=== PATIENT | female | born 1955 | race Caucasian/White ===

== ENCOUNTER 2017-10-30 16:22 | Emergency (ER) | payer MEDICAID ==
[2017-10-30 16:22] VITALS: BMI 29.2
[2017-10-30 16:52] VITALS: RESP 18; O2SAT 100
[2017-10-30 17:56] LABS: URINE BILIRUBIN NEGATIVE (NEGATIVE); URINE BLOOD NEGATIVE (NEGATIVE); URINE CLARITY SLIGHTY-CLOUDY (Clear); URINE COLOR YELLOW (YELLOW); URINE GLUCOSE (UA) NEG (Normal); URINE LEUKOCYTE ESTERASE NEG Leu/uL (Negative); URINE PROTEIN NEGATIVE (NEGATIVE); URINE UROBILINOGEN 0.2-1.0 mg/dL (0.2-1.0)
[2017-10-30 17:57] LABS: URINE BACTERIA OCC (<OCC)
[2017-10-30 18:03] LABS: VENOUS BLOOD GAS BASE EXCESS 2.4 mmol/L (0.0-2.0); VENOUS BLOOD GAS PCO2 58 mmHg (40-60); VENOUS BLOOD GAS PO2 35 mm/Hg (30-55); VENOUS BLOOD PH 7.32 (7.32-7.43)
[2017-10-30 18:06] LABS: BASO # 0.1 K/uL (0.0-0.2); EOS # 0.3 K/uL (0.0-0.7); LYMPH # 2.6 K/uL (1.0-4.3); LYMPH % 30.6 % (20.0-40.0); MEAN CELL VOLUME 85.9 fl (81.0-99.0); MEAN CORPUSCULAR HEMOGLOBIN 27.8 pg (27.0-31.0); MEAN CORPUSCULAR HGB CONC 32.4 g/dL (33.0-37.0); MEAN PLATELET VOLUME 9.6 fl (7.2-11.7); MONO # 0.5 K/uL (0.0-0.8); MONO % 5.8 % (0.0-10.0); NEUT % 59.6 % (50.0-75.0); NRBC % 0.1 % (0.0-0.0); RBC 4.33 Mil/uL (3.80-5.20); RED CELL DISTRIBUTION WIDTH 14.3 % (11.5-14.5); WHITE BLOOD COUNT 8.4 K/uL (4.8-10.8)
--- NOTE | 2017-10-30 18:11 | ED PDOC ---
HPI: Fever Fever Onset Was: 10/26/17 The Fever Was Measured: Oral What Antipyretic Given Prior To Arrival: Ibuprofen (last taken on 10/27/17) Additional Comments: 62 year old female with medical history of anxiety and fibromyalgia, presents to the emergency department for an evaluation of a fever (Tmax: 38.9 degrees celsius orally) ongoing for 5 days. Patient reports taking Theraflu and Ibuprofen for relief with last dosage taken on 10/27/17 and has not taken any medications today. She also experienced a tactile fever last night but did not measure temperature at the time. She denies any cough, congestion, sore throat, vomiting, diarrhea, abdominal pain, dysuria, hematuria , headache, light sensitivity, neck pain or stiffness, rash, sick contacts, recent travel. Of note, she reports history of right-sided lower back pain which she's had for several years and is unchanged but it is a chronic condition and does not want it evaluated today. Past Medical History Reviewed: Historical Data, Nursing Documentation, Vital Signs Vital Signs: Last Vital Signs Temp 98.6 F 10/30/17 16:49 Pulse 77 10/30/17 16:49 Resp 18 10/30/17 16:49 BP 124/53 L 10/30/17 16:49 Pulse Ox 100 10/30/17 19:06 - Medical History PMH: Anxiety, Depression, Fibromyalgia, Gastritis, Gall Bladder Disease, Post Traumatic Stress Disorder - Surgical History Surgical History: Cholecystectomy, Tonsillectomy, - Family History Family History: States: No Known Family Hx - Social History Current smoker - smoking cessation education provided: Yes Alcohol: None Drugs: Denies - Immunization History Hx Tetanus Toxoid Vaccination: No Hx Influenza Vaccination: No Hx Pneumococcal Vaccination: No - Home Medications Home Medications: Ambulatory Orders Medication Instructions Recorded Citalopram Hydrobromide [Celexa] 40 mg PO DAILY 09/19/15 Gabapentin 100 mg PO DAILY 09/19/15 Montelukast [Singulair] 10 mg PO QN 09/19/15 busPIRone [Buspar] 10 mg PO DAILY 09/19/15 Naproxen [Naprosyn Tab] 375 mg PO BID PRN #30 tab 08/15/16 Pantoprazole Sodium [Protonix] 40 mg PO DAILY #14 ect 08/15/16 - Allergies Allergies/Adverse Reactions: Allergies Allergy/AdvReac Type Severity Reaction Status Date / Time morphine Allergy Intermediate Verified 08/27/17 02:58 diphenhydramine HCl Allergy ANAPHYLAXIS Verified 08/26/17 23:35 [From Benadryl] iodine Allergy ANAPHYLAXIS Verified 08/26/17 23:35 Penicillins Allergy ANAPHYLAXIS Verified 08/26/17 23:35 Review of Systems ROS Statement: Except As Marked, All Systems Reviewed And Found Negative Constitutional: Positive for: Fever (Tmax: 38.9 degrees celsius) ENT: Negative for: Nose Congestion, Throat Pain Respiratory: Negative for: Cough Gastrointestinal: Negative for: Vomiting, Abdominal Pain, Diarrhea Genitourinary Female: Negative for: Dysuria, Hematuria Musculoskeletal: Positive for: Back Pain (lower right chronically) Neurological: Negative for: Headache Physical Exam - Reviewed Nursing Documentation Reviewed: Yes Vital Signs Reviewed: Yes - Physical Exam Appears: Positive for: Non-toxic, No Acute Distress Head Exam: Positive for: ATRAUMATIC, NORMAL INSPECTION, NORMOCEPHALIC Skin: Positive for: Normal Color. Negative for: Rash Eye Exam: Positive for: Normal appearance, EOMI, PERRL ENT: Positive for: Normal ENT Inspection, TM Is/Are (clear bilaterally). Negative for: Pharyngeal Erythema, Tonsillar Exudate, Tonsillar Swelling Neck: Positive for: Normal, Supple Cardiovascular/Chest: Positive for: Regular Rate, Rhythm Respiratory: Positive for: Normal Breath Sounds. Negative for: Wheezing, Respiratory Distress Gastrointestinal/Abdominal: Positive for: Normal Exam, Soft. Negative for: Tenderness Back: Positive for: Normal Inspection. Negative for: L CVA Tenderness, R CVA Tenderness Extremity: Positive for: Normal ROM (upper/lower) Neurologic/Psych: Positive for: Alert (x3), Oriented. Negative for: Motor/ Sensory Deficits - Laboratory Results Result Diagrams: 10/30/17 17:50 10/30/17 17:50 - ECG O2 Sat by Pulse Oximetry: 100 (RA) Pulse Ox Interpretation: Normal Medical Decision Making Medical Decision Making: Initial Impression: Fever Initial Plan: * VBG * CMP * CBC * Blood culture * Urine C&S * Influenza A B * Rapid Strep * UA Time: 1824 --Negative for strep and influenza. --Labs: no significant abnormalities noted 1899 On re-evaluation, pt. resting comfortably. Denies headache, neck pain, light sensitivity. Informed of results and advised to f/u with PMD for further evaluation. Pt. is to return to ED immediately if symptoms worsen. Scribe Attestation: Documented by Madyson Negro, acting as a scribe for Pacheco Kramer PA-C. Provider Scribe Attestation: All medical record entries made by the Scribe were at my direction and personally dictated by me. I have reviewed the chart and agree that the record accurately reflects my personal performance of the history, physical exam, medical decision making, and the department course for this patient. I have also personally directed, reviewed, and agree with the discharge instructions and disposition. Disposition - Clinical Impression Clinical Impression: Fever in adult - Patient ED Disposition Is Patient to be Admitted: No - Disposition Referrals: Suzette Plunkett [Outside] Disposition: Routine/Home Disposition Time: 19:02 Condition: STABLE Additional Instructions: Follow up with your primary care doctor for further evaluation. Return to ED immediately if symptoms worsen. Instructions: Fever, Adult (DC) Forms: [employer] ([place]atemalan) Print Language: [place]THER[place] IRISH
[2017-10-30 18:24] LABS: ALBUMIN 4.5 g/dL (3.5-5.0); CALCIUM 9.5 mg/dL (8.4-10.2); GFR AFRICAN-AMERICAN > 60; GFR NON-AFRICAN AMERICAN > 60
[2017-10-30 18:32] LABS: ALT/SGPT 33 U/L (9-52); AST/SGOT 40 U/L (14-36); BLOOD UREA NITROGEN 11 mg/dl (7-17)
[2017-10-30 19:21] VITALS: BP 121/56; PULSE 69; TEMP 98.3
== END 2017-10-30 19:20 | disposition home or self-care (01) ==
LOC: H.ER 16:22
DX: R50.9 Fever, unspecified (principal); F32.9 Major depressive disorder, single episode, unspecified; F43.10 Post-traumatic stress disorder, unspecified; M79.7 Fibromyalgia; Z88.0 Allergy status to penicillin